=== PATIENT | female | born 1940 | race Caucasian/White ===

== ENCOUNTER 2016-11-28 13:32 | Outpatient (CLI) | payer MEDICARE, OTHER | END 2016-11-28 13:33 | LOC: POD 13:32 | PROVIDERS: ATTEND Podiatrist | DX: B35.1 Tinea unguium (principal); M79.674 Pain in right toe(s); M79.675 Pain in left toe(s) | CPT/HCPCS: 11721; G0463 ==

== ENCOUNTER 2017-02-17 12:56 | Outpatient (CLI) | payer MEDICARE, OTHER | END 2017-02-17 12:58 | LOC: POD 12:56 | PROVIDERS: ATTEND Podiatrist | DX: B35.1 Tinea unguium (principal); M79.674 Pain in right toe(s); M79.675 Pain in left toe(s) | CPT/HCPCS: 11721; G0463 ==

== ENCOUNTER 2017-04-24 | Outpatient (CLI) | payer MEDICARE, OTHER | END 2017-04-24 14:35 | CPT/HCPCS: 11721; G0463 ==

== ENCOUNTER 2017-04-28 12:11 | Outpatient (CLI) | payer MEDICARE, OTHER | END 2017-04-28 12:12 | LOC: CARD 12:11 | PROVIDERS: ATTEND Internal Medicine Cardiovascular Disease | DX: I35.0 Nonrheumatic aortic (valve) stenosis (principal) ==

== ENCOUNTER 2017-07-24 13:57 | Outpatient (CLI) | payer MEDICARE, OTHER | END 2017-07-24 14:00 | LOC: POD 13:57 | PROVIDERS: ATTEND Podiatrist | DX: B35.1 Tinea unguium (principal); M79.674 Pain in right toe(s); M79.675 Pain in left toe(s) | CPT/HCPCS: 11721; G0463 ==

== ENCOUNTER 2017-11-17 13:32 | Outpatient (CLI) | payer MEDICARE, OTHER | END 2017-11-17 13:33 | LOC: POD 13:32 | PROVIDERS: ATTEND Podiatrist | DX: B35.1 Tinea unguium (principal); M79.674 Pain in right toe(s); M79.675 Pain in left toe(s) | CPT/HCPCS: 11721; G0463 ==

== ENCOUNTER 2018-02-26 12:48 | Outpatient (CLI) | payer MEDICARE, OTHER | END 2018-02-26 12:50 | LOC: POD 12:48 | PROVIDERS: ATTEND Podiatrist | DX: B35.1 Tinea unguium (principal); M79.674 Pain in right toe(s); M79.675 Pain in left toe(s) | CPT/HCPCS: 11721; G0463 ==